=== PATIENT | female | born 1995 | race Caucasian/White ===

== ENCOUNTER 2023-06-13 20:39 | Emergency (ER) | payer SELFPAY ==
[2023-06-13 20:57] VITALS: PULSE 93
== END 2023-06-13 23:20 | disposition left against medical advice (07) ==
LOC: ER 20:39
DX: R10.9 Unspecified abdominal pain (principal); Z53.21 Procedure and treatment not carried out due to patient leaving prior to being seen by health care provider
CPT/HCPCS: 99281